=== PATIENT | female | born 1985 | race African-American/Black ===

== ENCOUNTER 2025-04-12 14:54 | Emergency (ER) | payer OTHER, SELFPAY ==
[~2025-04-12 14:54] MED LIST: Iopamidol 300 61% 100 ML VIAL FS ONE
[2025-04-12] MEDS ORDERED: Metoclopramide HCl 10 MG (2 mL) VIAL ONE (15:19)
[2025-04-12] MEDS ORDERED: diphenhydrAMINE 50 MG/ML VIAL ONE (15:19)
[2025-04-12] MEDS ORDERED: Acetaminophen 500 MG TAB ONE (15:19)
[2025-04-12] MEDS ORDERED: Dexamethasone 10 MG/ML VIAL ONE (15:19)
[2025-04-12 15:38] LABS: #Basophils 0.04 10x3/uL (0.0-0.2); #Eosinophils 0.04 10x3/uL (0.0-0.5); #Monocytes 0.49 10x3/uL (0.0-1.1); #Neutrophils 3.24 10x3/uL (1.5-8.4); %Basophils 0.6 % (0.0-2.0); %Eosinophils 0.6 % (0.0-6.0); %Lymphocytes 41.0 % (18.0-47.0); %Monocytes 7.6 % (0.0-10.0); %Neutrophils 50.0 % (40.0-75.0); Hematocrit 35.1 % (34.9-44.5); Hemoglobin 11.1 g/dL (12.0-15.5); Mean Corpuscular Hemoglobin 28.1 pg (27.0-33.0); Mean Corpuscular Volume 88.9 fL (81.6-98.3); Platelet Count 260 10x3/uL (150-450); Red Blood Cell (RBC) Count 3.95 10x6/uL (3.90-5.03); White Blood Cell (WBC) Count 6.48 10x3/uL (3.5-10.5)
[2025-04-12 15:57] LABS: Glucose, Urine (Dipstick) Normal (Negative); Leukocyte 25 (Negative); Protein, Urine (Dipstick) 15 mg/dl (Neg-Trace); Specific Gravity, Urine 1.020 (1.005-1.030)
[2025-04-12 16:01] LABS: BHCG - Serum Negative (NEGATIVE); Pregs Control Background? CLEAR/WHITE (CLR/WHITE); Pregs Control Bar Appear? YES (CONTROL BAR)
[2025-04-12 16:06] LABS: ALT (SGPT) 10 U/L (Less than 34); AST (SGOT) 17 U/L (11-34); Albumin 3.5 g/dL (3.1-4.5); Alkaline Phosphatase 51 U/L (40-110); Anion Gap 12 mmol/L (10-20); BUN (Urea Nitrogen) 9 mg/dL (7.0-18.7); Bilirubin, Total 0.3 mg/dL (0.3-1.2); Calc. Creatinine Clearance 0 mL/min (70-130); Calcium 8.4 mg/dL (7.8-10.44); Carbon Dioxide 22 mmol/L (22-29); Chloride 109 mmol/L (98-107); Globulin 3.4 g/dL (2.4-3.5); Glucose 92 mg/dL (70-105); Lipase 30 U/L (8-78); Potassium 3.9 mmol/L (3.5-5.1); Sodium 139 mmol/L (136-145)
[2025-04-12 16:36] LABS: CAUTI Indications for Culture Pelvic or flank pain; RBC/HPF 0-3 HPF (0-3)
[2025-04-12 16:38] LABS: Bacteria/HPF 2+ HPF (None Seen); Mucous/LPF 3+ LPF (<2+); Urine Culture Reflex No No
[2025-04-12] MEDS ORDERED: Ketorolac Tromethamine 30 MG (1 mL) VIAL ONE (18:26)
== END 2025-04-12 22:42 | disposition home or self-care (01) ==
LOC: CSHERS 14:54
DX: R51.9 Headache, unspecified (principal); N39.0 Urinary tract infection, site not specified; F17.210 Nicotine dependence, cigarettes, uncomplicated; F17.290 Nicotine dependence, other tobacco product, uncomplicated; Z20.822 Contact with and (suspected) exposure to COVID-19
CPT/HCPCS: 36415; 70450; 74177; 76705; 80053; 81001; 83690; 84443; 84703; 85025; 87428; 93005; 96374; 96375; J1100; J1200; J1885; J2765; Q9967